=== PATIENT | female | born 1945 | race Caucasian/White ===

== ENCOUNTER → 2017-01-28 | Outpatient (CLI) | payer OTHER, MEDICARE ==
[~2017-01-28] MED LIST: APOA1CAP PO; ASPI81TA28 PO; CALC-51 PO; CHOL20005 PO; COEN50CA22 PO; FLAX12003 PO; GLUCTAB7 PO; MISCCAP80 PO; MULT-506 PO; NAPR-1169 PO; OFLO0.3S OPL; OMEG1CAP81 PO; PRD10 PO; REDCAP2 PO
== END | disposition home or self-care (01) ==
LOC: C.LAB 11:15
PROVIDERS: ATTEND Family Medicine
DX: M79.662 Pain in left lower leg (principal); M25.472 Effusion, left ankle

== ENCOUNTER 2017-01-30 17:42 | Emergency (ER) | payer OTHER, MEDICARE ==
[~2017-01-30] VITALS: Ht 170.2 cm; Wt 75.0 kg
[~2017-01-30 17:42] MED LIST changes: -APOA1CAP PO; -COEN50CA22 PO; -NAPR-1169 PO; -PRD10 PO; -REDCAP2 PO
[2017-01-30 17:52] VITALS: TEMP 36.9; Ht 170.2 cm; Wt 75.0 kg
[2017-01-30] MEDS ORDERED: PRD10 PO (18:25)
[2017-01-30] MEDS ORDERED: REDCAP2 PO (18:25)
[2017-01-30] MEDS ORDERED: COEN50CA22 PO (18:25)
[2017-01-30] MEDS ORDERED: APOA1CAP PO (18:25)
--- NOTE | 2017-01-30 18:55 | DIAGNOSTIC IMAGING REPORT ---
RIGHT WRIST 5 VIEWS HISTORY: pain at radial styloid into thumb Right COMPARISON: None. FINDINGS: There is no fracture or dislocation. Mild soft tissue swelling. Mild chondrocalcinosis. Small areas of cystic change within the scaphoid and lunate due to long-standing degenerative change. No erosions identified. The bones are osteopenic. Mild osteoarthritis at the STT joint. No radiopaque foreign bodies. IMPRESSION: 1. No fractures within the right wrist. 2. Mild soft tissue swelling. 3. Chondrocalcinosis and mild degenerative change. Electronically signed by: Carlos Saavedra M.D. 01/30/2017 6:53 PM Dictated Date/Time: 01/30/2017 6:50 PM
--- NOTE | 2017-01-30 19:15 | EMERGENCY ROOM VISIT NOTE ---
ED Visit Note First contact with patient: 17:58 Patient was seen by our PA/SENIOR CONSTRUCTION MANAGER. I was involved in the patient's care and did evaluate the patient myself. I was involved in the care throughout the ER stay. Patient has inflammation to the wrist along the radial aspect. Films do not show fracture. There has been no significant trauma. The area will be immobilized and followed up as an outpatient.
[2017-01-30] MEDS ORDERED: NAPR-1169 PO (19:24)
--- NOTE | 2017-01-30 19:24 | EMERGENCY ROOM VISIT NOTE ---
ED Visit Note First contact with patient: 17:58 Chief Complaint: RIGHT Wrist Pain History of Present Illness: Patient is a 71-year-old female who presents to the emergency Department by private vehicle for evaluation of her RIGHT wrist pain. She reports that she's had pain at the base of the RIGHT thumb since . She denies any traumatic events to the affected area. She reports no history of fracture or injury to the affected area. She rates her current discomfort as an 8/10. She reports pain with range of motion. She had taken ibuprofen to sleep last night. She denies any redness, but does report swelling. She denies any associated wrist pain, forearm pain, or elbow pain. Medications: Reviewed and discussed with the patient. Allergies: Codeine, Wheat PMH: No pertinent past medical history. SHx: Patient is a 71-year-old female who lives locally. ROS: All pertinent positive and negative review of systems are appropriately documented in the History of Present Illness. Physical Exam: VITAL SIGNS - Vital signs and nursing notes were reviewed. GENERAL - 71-year-old female appearing her stated age and in noticeable discomfort throughout the exam. MUSCULOSKELETAL - Active ROM of the RIGHT wrist was minimally limited in all directions. Mild edema noted to the radial styloid process. No palpable deformities. No tenderness with squeezing the forearm. No tenderness extending into the carpals. No point-tenderness over the anatomic snuffbox. No pain elicited with supination and pronation of the forearm. SPECIAL TESTS - Positive Noel test. NEUROLOGIC - SENSORY: Spinothalamic tract was found to be intact with ability to discriminate sharp versus dull sensation at the level of the RIGHT elbow down to the fingertips. No sensory deficits of the dorsal column were appreciated utilizing light touch for evaluation. VASCULAR - Capillary refill was brisk. +3/5 radial pulse palpated. IMAGING: RIGHT WRIST 5 VIEWS HISTORY: pain at radial styloid into thumb Right COMPARISON: None. FINDINGS: There is no fracture or dislocation. Mild soft tissue swelling. Mild chondrocalcinosis. Small areas of cystic change within the scaphoid and lunate due to long-standing degenerative change. No erosions identified. The bones are osteopenic. Mild osteoarthritis at the STT joint. No radiopaque foreign bodies. IMPRESSION: 1. No fractures within the right wrist. 2. Mild soft tissue swelling. 3. Chondrocalcinosis and mild degenerative change. ED Course: Patient was seen and evaluated by myself. Patient was provided an ice pack for comfort. X-ray of the affected wrist was obtained. Imaging results above. Imaging results reviewed with the patient who acknowledges understanding. Patient was placed in a thumb spica splint for comfort. She will be prescribed naproxen to be used for symptom management. She will ice the area for comfort. She will follow-up with with [facility] for any changing or worsening symptoms. Patient discharged home in good condition. In the evaluation and treatment of this patient, the following differential diagnoses were considered: Wrist Sprain, Wrist Fracture, Wrist Dislocation, Scapholunate Dissociation, Carpal Fracture, Metacarpal Fracture, Radial Styloid Process Fracture, Ulnar Styloid Process Fracture, or Carpal Tunnel Syndrome. Impression: RIGHT wrist pain - de Quervain's tenosynovitis Discharge Instructions: You have been treated in the Emergency Department for Wrist Pain - de Quervain' s tenosynovitis. You have been prescribed Naprosyn (naproxen). This is an anti-inflammatory medication used to help decrease your symptoms and improve your pain. Please take this medication as prescribed. It is best to take this medication with food. Please to not take this antibiotic with other NSAIDS including: Ibuprofen , Advil, Motrin, Aspirin, Aleve, Celebrex, etc For pain control, you can use the following tnhm-nfh-aexiian medicines (if >12 yo): - Regular strength (325mg/tab) Tylenol (acetaminophen) 2 tabs every 4-6 hours as needed. Do not exceed 12 tablets in a 24 hour period. Avoid taking more than 4 grams (4000 mg) of Tylenol per day. This includes any other sources of acetaminophen you may take on a regular basis. If this is a recent injury (<24 hrs), ice can be applied to the area of pain for the first 3 days to help decrease pain and inflammation. Use the wrist splint for comfort for the next week. Follow-up with orthopedic surgery if your symptoms are not improving over the next week. Return to the Emergency Department if your current symptoms worsen despite treatment course outlined above, or if you develop any of the following symptoms : intractable pain despite aforementioned treatment course or new onset of numbness or tingling of the fingers. Current/Historical Medications Scheduled Apoaequorin (Prevagen), Unknown Dose PO DAILY Aspirin (Aspirin Ec), 81 MG PO QAM Calcium Carbonate-Vitamin D (Calcium), 1 TAB PO BID Cholecalciferol (Vitamin D3), 200 INTUNIT PO QAM Coenzyme Q10 (Ubidecarenone) (Coq10), Unknown Dose PO DAILY Flaxseed (Linseed) (Flaxseed Oil), 2 CAP PO QAM Flaxseed (Linseed) (Flaxseed Oil), 1 CAP PO HS Oxwgfdkjkxw-Ktmtlyvujiv-Fpd C- (Glucosamine Chondroitin), 1 TAB PO BID Multivitamin (Multivitamin), 1 TAB PO QAM Naproxen (Naprosyn), 500 MG PO BID [place]-3 Fatty Acids (Fish Oil), 1 CAP PO BID Prednisone (Prednisone), Unknown Dose PO DAILY Probiotic Product (Probiotic), 1 CAP PO QAM Red Yeast Rice Extract (Red Yeast Rice), Unknown Dose PO DAILY Allergies Coded Allergies: Codeine (Verified Adverse Reaction, Mild, feel flippy upset stomach feels spacy, 01/30/17) Wheat (Verified Adverse Reaction, Mild, wheat/pasta: gi upset loose bowels, 01/30/17) Vital Signs Date Time Temp Pulse Resp B/P Pulse Ox O2 Delivery O2 Flow Rate FiO2 01/30/17 19:34 75 18 125/81 98 01/30/17 17:52 36.9 88 18 119/81 94 Room Air Departure Information Impression Primary Impression: Wrist pain, right Additional Impression: De Quervain's tenosynovitis, right Dispostion Home / Self-Care Condition GOOD Prescriptions Naproxen (Naprosyn) 500 Mg Tab 500 MG PO BID for 10 Days, #20 TAB Prov: Salbador Elizondo PA-C 01/30/17 Referrals Alvin Bailon D.O.Int.Med. (PCP) Howie De La Cruz MD Patient Instructions De Quervain Tenosynovitis, My [facility] Additional Instructions You have been treated in the Emergency Department for Wrist Pain - de Quervain' s tenosynovitis. You have been prescribed Naprosyn (naproxen). This is an anti-inflammatory medication used to help decrease your symptoms and improve your pain. Please take this medication as prescribed. It is best to take this medication with food. Please to not take this antibiotic with other NSAIDS including: Ibuprofen , Advil, Motrin, Aspirin, Aleve, Celebrex, etc For pain control, you can use the following mfkz-bym-lpgbeer medicines (if >12 yo): - Regular strength (325mg/tab) Tylenol (acetaminophen) 2 tabs every 4-6 hours as needed. Do not exceed 12 tablets in a 24 hour period. Avoid taking more than 4 grams (4000 mg) of Tylenol per day. This includes any other sources of acetaminophen you may take on a regular basis. If this is a recent injury (<24 hrs), ice can be applied to the area of pain for the first 3 days to help decrease pain and inflammation. Use the wrist splint for comfort for the next week. Follow-up with orthopedic surgery if your symptoms are not improving over the next week. Return to the Emergency Department if your current symptoms worsen despite treatment course outlined above, or if you develop any of the following symptoms : intractable pain despite aforementioned treatment course or new onset of numbness or tingling of the fingers. Problem Qualifiers
[2017-01-30 19:34] VITALS: BP 125/81; PULSE 75; O2SAT 98
== END 2017-01-30 19:36 | disposition home or self-care (01) ==
LOC: C.EDB 17:43 → C.EDD 19:36
DX: M65.4 Radial styloid tenosynovitis [de Quervain] (principal); Z79.82 Long term (current) use of aspirin

== ENCOUNTER → 2017-03-01 | Outpatient (CLI) | payer OTHER, MEDICARE ==
[~2017-03-01] MED LIST changes: +APOA1CAP PO; +COEN50CA22 PO; -OFLO0.3S OPL; +PRD10 PO; +REDCAP2 PO
--- NOTE | 2017-03-01 16:09 | DIAGNOSTIC IMAGING REPORT ---
LEFT FOOT MIN 3 VIEWS ROUTINE CLINICAL HISTORY: Left foot pain and swelling. No recent trauma. COMPARISON: None FINDINGS: Tarsometatarsal joints are intact. There is no fracture or suspicious lesion within the left foot. There is mild posterior and plantar calcaneal spurring with calcification projecting of the distal Achilles. Apparent erosion of the medial aspect of the distal phalanx of left fifth toe is probably artifactual. There is minimal arthritis within several articulations of the left foot. IMPRESSION: 1. No acute fracture within the left foot. 2. Minimal degenerative changes of the left foot. 3. Apparent erosion of the distal phalanx of the left fifth toe which is probably artifactual. 4. Soft tissue swelling of the left fourth toe. Electronically signed by: Preston River M.D. 03/01/2017 4:08 PM Dictated Date/Time: 03/01/2017 4:02 PM
== END | disposition home or self-care (01) ==
LOC: C.RADBC 15:36
PROVIDERS: ATTEND Family Medicine
DX: M79.673 Pain in unspecified foot (principal)

== ENCOUNTER → 2017-03-04 | Outpatient (CLI) | payer OTHER, MEDICARE ==
--- NOTE | 2017-03-04 16:17 | DIAGNOSTIC IMAGING REPORT ---
LEFT LOWER EXTREMITY VENOUS DOPPLER HISTORY: M79.662 Pain of left calfR60.0 Leg [id number] COMPARISON STUDY: None. FINDINGS: There is normal compressibility, flow, and augmentation within the left lower extremity deep venous system. IMPRESSION: No DVT within the left lower extremity. Electronically signed by: Carlos Saavedra M.D. 03/04/2017 4:16 PM Dictated Date/Time: 03/04/2017 4:16 PM
== END | disposition home or self-care (01) ==
LOC: C.ULTR 15:46
PROVIDERS: ATTEND Physician Assistant Medical
DX: M79.662 Pain in left lower leg (principal); R60.0 Localized edema

== ENCOUNTER → 2017-03-14 | Outpatient (CLI) | payer OTHER, MEDICARE ==
--- NOTE | 2017-03-14 14:06 | DIAGNOSTIC IMAGING REPORT ---
BONE SCAN 3PHASE WHOLE BODY CLINICAL HISTORY: Left ankle swelling, low back pain and acute right wrist pain. COMPARISON STUDY: Right wrist radiographs January 30, 2017 and left foot radiographs March 01, [address] of the abdomen and pelvis October 05, 2016. TECHNIQUE: Three-phase bone scan was performed following intravenous injection of 25.604 mCi of technetium 99m MDP at 10:00 AM on March 14, 2017. Blood flow, blood pool and delayed phase imaging was performed. FINDINGS: No hyperemia is identified within the lower thoracic spine, lumbar spine, sacrum, pelvis or hips. Expected soft tissue and renal uptake is identified. 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 Focal moderate uptake projecting of the right first metatarsophalangeal joint is degenerative. Uptake within the shoulders and sternoclavicular joints is degenerative. Mild to moderate multifocal uptake within the thoracic and lumbar spines is likely degenerative. There is mild uptake within the left midfoot and mild to moderate uptake within the right wrist. IMPRESSION: Mild to moderate radiotracer uptake within the thoracic spine, lumbar spine, left midfoot, right wrist, right first metatarsophalangeal joint and shoulders which is likely degenerative. Electronically signed by: Preston River M.D. 03/14/2017 2:05 PM Dictated Date/Time: 03/14/2017 2:00 PM
== END | disposition home or self-care (01) ==
LOC: C.NUCL 09:45
PROVIDERS: ATTEND Physician Assistant Medical
DX: M25.472 Effusion, left ankle (principal); M25.531 Pain in right wrist; M54.5 Low back pain

== ENCOUNTER → 2017-03-31 | Outpatient (CLI) | payer OTHER, MEDICARE ==
--- NOTE | 2017-03-31 13:39 | MAMMOGRAPHY REPORT ---
BILATERAL DIGITAL SCREENING MAMMOGRAM TOMOSYNTHESIS WITH CAD: 03/31/2017 CLINICAL HISTORY: Routine screening. Patient has no complaints. TECHNIQUE: Breast tomosynthesis in addition to standard 2D mammography was performed. Current study was also evaluated with a Computer Aided Detection (CAD) system. COMPARISON: Comparison is made to exams dated: 03/29/2016 mammogram, 03/26/2015 mammogram, 03/25/2014 m ammogram, 03/14/2013 mammogram, 03/13/2012 mammogram, and 03/10/2011 mammogram - [facility] er. BREAST COMPOSITION: There are scattered areas of fibroglandular density in both breasts. FINDINGS: No suspicious masses, calcifications, or areas of architectural distortion are noted in ei ther breast. There has been no significant interval change compared to prior exams. A linear scar ma rker denotes a scar on the right upper outer breast. IMPRESSION: ACR BI-RADS CATEGORY 2: BENIGN There is no mammographic evidence of malignancy. A 1 year screening mammogram is recommended. The pa tient will receive written notification of the results. Approximately 10% of breast cancers are not detected with mammography. A negative mammographic report should not delay biopsy if a clinically suggestive mass is present. Brooke Stearns M.D. /:03/31/2017 09:10:58 Box Storage Worker: Marissa Gresham, [facility] letter sent: Normal 1/2 BI-RADS Code: ACR BI-RADS Category 2: Benign
== END | disposition home or self-care (01) ==
LOC: C.MAMM 08:37
PROVIDERS: ATTEND Family Medicine
DX: Z12.31 Encounter for screening mammogram for malignant neoplasm of breast (principal)

== ENCOUNTER → 2017-05-04 | Outpatient (CLI) | payer OTHER, MEDICARE ==
[2017-05-04 09:32] LABS: HEMATOCRIT 40.2 % (37-47); MEAN CELL VOLUME 90.5 fL (80-100); MEAN CORPUSCULAR HEMOGLOBIN 29.5 pg (25-34); MEAN CORPUSCULAR HGB CONC 32.6 g/dl (32-36); MEAN PLATELET VOLUME 9.3 fL (7.4-10.4); PLATELET COUNT 216 K/uL (130-400); RED BLOOD COUNT 4.44 M/uL (4.2-5.4); WHITE BLOOD COUNT 6.89 K/uL (4.8-10.8)
[2017-05-04 09:43] LABS: C-REACTIVE PROTEIN 9.56 mg/dl (0-0.29); RHEUMATOID FACTOR < 10.0 U/mL (0-15)
[2017-05-04 10:53] LABS: LYME DISEASE AB IGG NEG (NEG); LYME DISEASE AB IGM NEG (NEG)
[2017-05-06 20:29] LABS: HLA-B27** TC 528X NEGATIVE (NEGATIVE)
== END | disposition home or self-care (01) ==
LOC: C.LAB 08:02
PROVIDERS: ATTEND Orthopaedic Surgery
DX: M25.531 Pain in right wrist (principal)

== ENCOUNTER → 2017-05-12 | Outpatient (CLI) | payer OTHER, MEDICARE | END | disposition home or self-care (01) | LOC: C.LABBC 13:05 | PROVIDERS: ATTEND Physician Assistant | DX: J02.9 Acute pharyngitis, unspecified (principal) ==

== ENCOUNTER → 2017-05-13 | Outpatient (CLI) | payer OTHER, MEDICARE ==
--- NOTE | 2017-05-16 12:06 | EDITING REQUIRED CODING QUERY ---
TREATMENT RENDERED WITHOUT A DIAGNOSIS Inflammatory arthropathy of right wrist To promote full compliance with coding requirements relating to patient care, physician participation is requested in all cases of contribution solicitor uncertainty. Please assist us with providing a diagnosis/symptom for the test(s) below: A diagnosis/symptom was not documented on your Order. A valid diagnosis/symptom is required to bill all insurances. Please remember that we are unable to code a diagnosis of rule out, probable, possible, questionable, or suspected. DATE OF SERVICE: 05/13/17 Tests that require a diagnosis: * GRAM STAIN, DIRECT SMEAR DIAGNOSIS: * CULTURE, BACTERIAL, ANY SOURCE DIAGNOSIS: * CULTURE, BACT., DEF: ANY SOURCE DIAGNOSIS * SYNOVIAL CRYSTAL I.D. DIAGNOSIS: Provider Signature: Date: Thank you Jacquie Crook [facility] [employer] Management Once completed, please kindly fax back to [phone] For questions please call [phone]
== END | disposition home or self-care (01) ==
LOC: C.LABSPEC 17:28
PROVIDERS: ATTEND Orthopaedic Surgery
DX: M19.039 Primary osteoarthritis, unspecified wrist (principal)

== ENCOUNTER → 2017-11-11 | Outpatient (CLI) | payer OTHER, MEDICARE ==
[~2017-11-11] MED LIST changes: -CALC-51 PO; +CALCIUM LACTATE PO; +FOLI1TAB8 PO; +METH2.5T PO; +OXYB5TAB PO; -PRD10 PO
[2017-11-11 11:32] LABS: ALBUMIN 3.7 gm/dl (3.4-5.0); ALT/SGPT 20 U/L (12-78); AST/SGOT 15 U/L (15-37); BLOOD UREA NITROGEN 16 mg/dl (7-18); CALCIUM 9.2 mg/dl (8.5-10.1); CARBON DIOXIDE 30 mmol/L (21-32); CREATININE 0.86 mg/dl (0.60-1.20); GLUCOSE 84 mg/dl (70-99); POTASSIUM 4.1 mmol/L (3.5-5.1); SODIUM 139 mmol/L (136-145); TOTAL PROTEIN 7.2 gm/dl (6.4-8.2)
[2017-11-11 11:46] LABS: ALKALINE PHOSPHATASE 63 U/L (45-117); CHOLESTEROL 201 mg/dl (0-200); LDL CHOLESTEROL CALCULATED 103 mg/dl
== END | disposition home or self-care (01) ==
LOC: C.LABBC 08:06
PROVIDERS: ATTEND Internal Medicine
DX: E55.9 Vitamin D deficiency, unspecified (principal); M19.90 Unspecified osteoarthritis, unspecified site; E78.4 Other hyperlipidemia; E78.89 Other lipoprotein metabolism disorders; M13.0 Polyarthritis, unspecified

== ENCOUNTER → 2017-11-14 | Day surgery (SDC) | payer OTHER, MEDICARE ==
[2017-11-04 08:12] VITALS: Ht 166.4 cm; Wt 62.3 kg
[~2017-11-14] VITALS: Ht 166.4 cm; Wt 62.3 kg
[~2017-11-14] MED LIST changes: +EpHEDrine SULFATE 50MG/5ML SYR ONE; +LIDOCAINE HCL 2% 2 ML VIAL (20MG/ML) ONE; +PROPOFOL IV EMULSION 10 MG/ML 20 ML VIAL IV ONE
[2017-11-14 08:18] VITALS: TEMP 36.5
--- NOTE | 2017-11-14 08:44 | Endo History and Physical ---
History & Physical Date of Service: Nov 14, 2017. Chief Complaint: history of polyps Referring Physician: Dr. Nelson Sosa History of Present Illness 72 yo CF who presents for colonoscopy secondary to history of colon polyps. Past Surgical History Hx Cardiac Surgery: No Hx Internal Defibrillator: No Hx Pacemaker: No Hx Abdominal Surgery: Yes (HYSTER) Hx of Implantable Prosthesis: No Hx Post-Op Nausea and Vomiting: No Hx Cancer Surgery: No Hx Thoracic Surgery: No Hx Orthopedic: Yes (LT RCR, LT/RT TKA, SEVERAL RT FOOT HAMMER TOE SURGERIES) Hx Urinary Tract Surgery: No Family History None Social History Smoking Status: Former Smoker Hx Substance Use: No Hx Alcohol Use: No Allergies Coded Allergies: Codeine (Verified Adverse Reaction, Mild, feel flippy upset stomach feels spacy, 11/04/17) Wheat (Verified Adverse Reaction, Mild, wheat/pasta: gi upset loose bowels, 11/04/17) Current Medications Reported Home Medications Medications Dose Route/Sig Max Daily Dose Days Date Category Dose Instructions [Calcium Lactate] 250 Mg PO BID 11/04/17 Reported Oxybutynin Chloride Er (Oxybutynin Chloride) 5 Mg Tab 1 Tab PO QAM 11/04/17 Reported Folvite (Folic Acid) 1 Mg Tab 1 Mg PO QAM 11/04/17 Reported Methotrexate 2.5 Mg Tab 8 Tabs PO WK 11/04/17 Reported TUESDAY Prevagen (Apoaequorin) Unknown Strength Cap 1 Cap PO DAILY 01/30/17 Reported Coq10 (Coenzyme Q10 (Ubidecarenone)) Unknown Strength Cap 2 Cap PO DAILY 01/30/17 Reported Red Yeast Rice (Red Yeast Rice Extract) Unknown Strength Cap 2 Cap PO DAILY 01/30/17 Reported Vitamin D3 (Cholecalciferol) 2,000 Unit Tab 200 Intunit PO DAILY 04/01/15 Reported Fish Oil ([place]-3 Fatty Acids) 1 Cap Cap 1 Cap PO DAILY 04/01/15 Reported Glucosamine Chondroitin (Acdlcignvjp-Uxirtuavwds-Gjm C-) 1 Tab Tab 1 Tab PO BID 04/01/15 Reported Flaxseed Oil (Flaxseed (Linseed)) 1 Cap Cap 1 Cap PO HS 04/01/15 Reported Probiotic (Probiotic Product) 1 Cap Cap 1 Cap PO DAILY 04/01/15 Reported Flaxseed Oil (Flaxseed (Linseed)) 1 Cap Cap 2 Cap PO QAM 04/01/15 Reported Aspirin Ec (Aspirin) 81 Mg Tab 81 Mg PO DAILY 04/01/15 Reported Multivitamin (Multivitamins) Tab 1 Tab PO DAILY 04/15/11 Reported Vital Signs Weight (Kilograms): 62.27 Height (Feet): 5 Height (Inches): 5.5 Date Time Temp Pulse Resp B/P (MAP) Pulse Ox O2 Delivery O2 Flow Rate FiO2 11/14/17 08:18 36.5 62 18 113/62 (79) 97 Room Air Physical Exam General Appearance: WD/WN, no apparent distress Respiratory/Chest: Auscultation: breath sounds normal Cardiovascular: Heart Auscultation: RRR Abdomen: Bowel Sounds: normal Inspection & Palpation: soft, non-distended, no tenderness, guarding & rebound Assessment and Plan Assessment: 72 yo CF who presents for colonoscopy secondary to history of colon polyps. Plan: Proceed with colonoscopy.
--- NOTE | 2017-11-14 09:31 | Anesthesiology Progress Note ---
Anesthesia Post Op Note Date & Time Nov 14, 2017 at 09:30 Vital Signs Pain Intensity: 0 Vital Signs Past 12 Hours Date Time Temp Pulse Resp B/P (MAP) Pulse Ox O2 Delivery O2 Flow Rate FiO2 11/14/17 09:21 66 16 81/40 (54) 96 Room Air 11/14/17 09:14 60 16 78/38 (51) 96 Room Air 11/14/17 08:18 36.5 62 18 113/62 (79) 97 Room Air Notes Mental Status: alert / awake / arousable, participated in evaluation Pt Amnestic to Procedure: Yes Nausea / Vomiting: adequately controlled Pain: adequately controlled Airway Patency, RR, SpO2: stable & adequate BP & HR: stable & adequate Hydration State: stable & adequate Anesthetic Complications: no major complications apparent
--- NOTE | 2017-11-14 09:58 | Discharge Instructions ---
Endoscopy Patient Instructions Date / Procedure(s) Performed Nov 14, 2017. Colonoscopy Allergy Information Coded Allergies: Codeine (Verified Adverse Reaction, Mild, feel flippy upset stomach feels spacy, 11/04/17) Wheat (Verified Adverse Reaction, Mild, wheat/pasta: gi upset loose bowels, 11/04/17) Discharge Date / Findings Nov 14, 2017. Diverticulosis Internal hemorrhoids Medication Instructions Stopped Medication(s): took ASA yesterday OK to resume all medications today as prescribed Reported Home Medications Medications Dose Route/Sig Max Daily Dose Days Date Category Dose Instructions [Calcium Lactate] 250 Mg PO BID 11/04/17 Reported Oxybutynin Chloride Er (Oxybutynin Chloride) 5 Mg Tab 1 Tab PO QAM 11/04/17 Reported Folvite (Folic Acid) 1 Mg Tab 1 Mg PO QAM 11/04/17 Reported Methotrexate 2.5 Mg Tab 8 Tabs PO WK 11/04/17 Reported TUESDAY Prevagen (Apoaequorin) Unknown Strength Cap 1 Cap PO DAILY 01/30/17 Reported Coq10 (Coenzyme Q10 (Ubidecarenone)) Unknown Strength Cap 2 Cap PO DAILY 01/30/17 Reported Red Yeast Rice (Red Yeast Rice Extract) Unknown Strength Cap 2 Cap PO DAILY 01/30/17 Reported Vitamin D3 (Cholecalciferol) 2,000 Unit Tab 200 Intunit PO DAILY 04/01/15 Reported Fish Oil ([place]-3 Fatty Acids) 1 Cap Cap 1 Cap PO DAILY 04/01/15 Reported Glucosamine Chondroitin (Zxaewrsoljb-Pzzgcvjiczb-Fuz C-) 1 Tab Tab 1 Tab PO BID 04/01/15 Reported Flaxseed Oil (Flaxseed (Linseed)) 1 Cap Cap 1 Cap PO HS 04/01/15 Reported Probiotic (Probiotic Product) 1 Cap Cap 1 Cap PO DAILY 04/01/15 Reported Flaxseed Oil (Flaxseed (Linseed)) 1 Cap Cap 2 Cap PO QAM 04/01/15 Reported Aspirin Ec (Aspirin) 81 Mg Tab 81 Mg PO DAILY 04/01/15 Reported Multivitamin (Multivitamins) Tab 1 Tab PO DAILY 04/15/11 Reported Provider Instructions Activity Restrictions - No exercising or heavy lifting for 24 hours. - Do not drink alcohol the day of the procedure. - Do not drive a car or operate machinery until the day after the procedure. - Do not make any important decisions or sign important papers in 24 hours after the procedure. Following Day: - Return to full activity which may include returning to work/school. Diet Start your diet with liquids and light foods (jello, soup, juice, toast). Then eat your usual diet if not nauseated. Treatment For Common After Affects For mild abdominal pain, bloating, or excessive gas: - Rest - Eat lightly - Lie on right side Follow-Up Information Follow-up with Dr. Nelsno Sosa as scheduled Anesthesia Information What You Should Know You have had a procedure that required some medicine to reduce anxiety and discomfort. This treatment is called moderate sedation. After receiving the treatment, you may be sleepy, but you will be able to breathe on your own. The effects of the treatment may last for several hours. Follow these instructions along with Activity/Diet recommendations noted above: * Do NOT do anything where dizziness or clumsiness would be dangerous. * Rest quietly at home today, then you can be up and about tomorrow. * Have a responsible person stay with you the rest of today. * You may have had an I.V. today. If so, you may take the dressing off later today. Recommendations Call your doctor if: * Trouble breathing * Continuous vomiting for more than 24 hours * Temperature above 101 degrees * Severe abdominal pain or bloating * Pain not relieved by pain medicine ordered * There is increased drainage or redness from any incision * A large amount of rectal bleeding greater than 2-3 tablespoons. (If you had a polyp/s removed or have hemorrhoids, a small amount of blood - from the rectum is to be expected.) * You have any unanswered questions or concerns. IN THE EVENT OF A SERIOUS EMERGENCY, GO TO THE NEAREST EMERGENCY ROOM Your discharge instructions were prepared by provider Ángel Delatorre. Patient Instructions Signature Page Leigha Martin Patient (or Guardian) Signature/Date: I have read and understand the instructions given to me by my caregivers. Caregiver/RN/Doctor Signature/Date: The above-named patient and/or guardian has received patient instructions on this date. + Original Patient Signature Page (only) stays with chart. Please make copy for patient.
[2017-11-14 09:59] VITALS: BP 110/62; PULSE 78; O2SAT 97
--- NOTE | 2017-11-14 09:59 | GI REPORT ---
Procedure Date: 11/14/2017 8:52 AM Procedure: Colonoscopy Indications: High risk colon cancer surveillance: Personal history of colonic polyps Medicines: Monitored Anesthesia Care Complications: No immediate complications. Estimated Blood Loss: Estimated blood loss: none. Procedure: Pre-Anesthesia Assessment: - Prior to the procedure, a History and Physical was performed, and patient medications and allergies were reviewed. The patient's tolerance of previous anesthesia was also reviewed. The risks and benefits of the procedure and the sedation options and risks were discussed with the patient. All questions were answered, and informed consent was obtained. Prior Anticoagulants: The patient has taken aspirin, last dose was 1 day prior to procedure. ASA Grade Assessment: II - A patient with mild systemic disease. After reviewing the risks and benefits, the patient was deemed in satisfactory condition to undergo the procedure. After I obtained informed consent, the scope was passed under direct vision. Throughout the procedure, the patient's blood pressure, pulse, and oxygen saturations were monitored continuously. The Scope was introduced through the anus and advanced to the terminal ileum. The colonoscopy was performed without difficulty. The patient tolerated the procedure well. The quality of the bowel preparation was good. The terminal ileum, ileocecal valve, appendiceal orifice, and rectum were photographed. Findings: The perianal and digital rectal examinations were normal. Scattered small-mouthed diverticula were found in the sigmoid colon. Non-bleeding internal hemorrhoids were found during retroflexion. The hemorrhoids were small. Impression: - Diverticulosis in the sigmoid colon. - Non-bleeding internal hemorrhoids. - No specimens collected. Recommendation: - Resume previous diet. - Continue present medications. - Repeat colonoscopy in 5 years for surveillance. - Return to primary care physician as previously scheduled. Ángel Delatorre, DO 11/14/2017 9:16:59 AM This report has been signed electronically. Note Initiated On: 11/14/2017 8:52 AM I attest to the content of the Intraoperative Record and orders documented therein, exceptions below
== END | disposition home or self-care (01) ==
LOC: C.GI 07:52
PROVIDERS: ATTEND Internal Medicine
DX: Z12.11 Encounter for screening for malignant neoplasm of colon (principal); Z86.010 Personal history of colon polyps; Z88.6 Allergy status to analgesic agent; Z91.018 Allergy to other foods; Z79.899 Other long term (current) drug therapy; Z79.82 Long term (current) use of aspirin; Z87.891 Personal history of nicotine dependence; K57.30 Diverticulosis of large intestine without perforation or abscess without bleeding; K64.8 Other hemorrhoids

== ENCOUNTER → 2018-05-22 | Outpatient (CLI) | payer OTHER, MEDICARE ==
[~2018-05-22] MED LIST changes: -APOA1CAP PO; -ASPI81TA28 PO; -CHOL20005 PO; -COEN50CA22 PO; -EpHEDrine SULFATE 50MG/5ML SYR ONE; -FLAX12003 PO; -FOLI1TAB8 PO; -GLUCTAB7 PO; -LIDOCAINE HCL 2% 2 ML VIAL (20MG/ML) ONE; -OMEG1CAP81 PO; -PROPOFOL IV EMULSION 10 MG/ML 20 ML VIAL IV ONE
== END | disposition home or self-care (01) ==
LOC: C.LABBC 07:40
PROVIDERS: ATTEND Internal Medicine
DX: E78.4 Other hyperlipidemia (principal)